=== PATIENT | male | born 1960 | race Hispanic/Latino ===

== ENCOUNTER 2017-10-12 17:59 | Emergency (ER) | payer OTHER ==
[~2017-10-12] VITALS: Ht 172.7 cm; Wt 80.7 kg
--- NOTE | 2017-10-12 18:44 | ED EYE COMPLAINT ---
History of Present Illness General Chief Complaint: Eye Problems Stated Complaint: ?PINK EYE Source: patient Exam Limitations: no limitations Vital Signs & Intake/Output Vital Signs & Intake/Output Vital Signs Date Time Temp Pulse Resp B/P B/P Pulse O2 O2 Flow FiO2 Mean Ox Delivery Rate 10/12 1853 98.1 75 18 154/96 97 Room Air Room Air 10/12 1805 98.0 74 18 136/100 98 Room Air Allergies Coded Allergies: papaya (Intermediate, HIVES 10/12/17) Uncoded Allergies: NUTS (Severe, ANAPHYLAXIS 10/12/17) Reconcile Medications Polytrim (Polytrim Eye Drops) 10,000 UNIT-1 MG/ML DROPS 1 GTT OPH Q6 CONJUNCTIVITIS Triage Note: 57M WITH RIGHT SCLERAL REDDENING WITH OOZING, WAKES WITH CRUSTING X2-3 DAYS. REPORTS GRANDSON RECENTLY TREATED FOR PINK EYE ALSO. DENIES HEADACHE. REPORTS AFFECTED EYE IS BLURRY. HYPERTENSIVE IN TRIAGE, HX OF HTN DOES NOT TAKE MEDICATION FOR IT Triage Nurses Notes Reviewed? yes Onset: Gradual Duration: day(s): (2-3) Timing: remote history Injury Environment: home Severity: moderate Severity Numbers: 6 No Modifying Factors: none HPI: Patient is a 57-year-old male with no past medical history presenting to the emergency department to complaint of right eye redness and discharge is been going on for the past 2-3 days. Waking up with crusting in the eye. Reports his grandson has had similar symptoms, recently treated for pinkeye which has resolved with him. No fevers or chills. Denies any vision changes. Has not been taking anything [id number] to help with symptoms. Patient does admit that he's been rubbing his eye often. No trauma. Denies foreign body sensation. Denies any pain associated with it. (Radha Watson) Past History Travel History Traveled to [place] past 21 day No Medical History Any Pertinent Medical History? see below for history Neurological: NONE EENT: NONE Cardiovascular: hypertension Respiratory: NONE Gastrointestinal: NONE Hepatic: NONE Renal: NONE Musculoskeletal: NONE Psychiatric: NONE Endocrine: NONE Blood Disorders: NONE Cancer(s): NONE Surgical History Surgical History: non-contributory Psychosocial History What is your primary language Frisian Tobacco Use: Current Daily Use Daily Tobacco Use Amount/Type: => 5 Cigarettes daily Family History Hx Contributory? No (Radha Watson) Review of Systems Review of Systems Constitutional: Reports: no symptoms. Comments Review of systems: See HPI, All other systems negative. Constitutional, no chills fever or weight loss HEENT: No visual changes no sore throat no congestion Cardiovascular: No chest pain ,palpitation Skin, no jaundice no rashes Respiratory: No dyspnea cough sputum GI: No nausea no vomiting Muscle skeletal: no back pain, no neck pain, Neurologic: No numbness no confusion Psych: No stress anxiety or depression,. Heme/endocrine: No bruising no bleeding no polyuria or polydipsia Immunology: No splenectomy or history of AIDS (Radha Watson) Physical Exam General Appearance: well developed/nourished, no apparent distress, alert, awake , comfortable General Inspection: normal inspection Eyelid: normal inspection Conjunctiva/Sclera: normal inspection EOM: intact Pupil: normal accommodation, normal pupil, PERRL General Inspection: normal inspection Eyelid: normal inspection Conjunctiva/Sclera: injected EOM: intact Pupil: normal accommodation, normal pupil, PERRL Anterior Chamber: normal inspection Physical Exam Head: atraumatic Comments: Well-developed well-nourished person in no acute distress HEENT: xtraocular motion intact, no nystagmus. Pupils equally round and reactive to light and accommodation. Right conjunctival injection noted with crusting noted in the upper and lower eyelashes. No purulent drainag noted. Nose is atraumatic. External auditory canal and Tympanic membranes clear. Pharynx normal. No swelling or edema. Neck: Normal inspection Respiratory: No respiratory distress. Extremity: No edema, Neuro: Alert oriented x3 Skin: No appreciable rash on exposed skin, skin is warm and dry. Psych: Mood and affect is normal, memory and judgment is normal. (Radha Watson) Progress Differential Diagnosis: , CORNEAL FOREIGN BODY, CONJUNCTIVITIS,CORNEAL ABRASION Plan of Care: Patient will be treated with Polytrim drops for conjunctivitis. Educated on warm compresses. Patient will return for worsening symptoms or concerns. Otherwise patient will follow up PCP. Repeat manual blood pressure is 156/94. pt will follow up with pcp. pt non- toxic. no headaches. (Radha Watson) Departure Departure Time of Disposition: 1849 Disposition: HOME OR SELF CARE Condition: Stable Clinical Impression Primary Impression: Conjunctivitis Qualifiers: Conjunctivitis type: acute Acute conjunctivitis type: unspecified Laterality: right Qualified Code: H10.31 - Unspecified acute conjunctivitis, right eye Secondary Impressions: Elevated blood pressure reading without diagnosis of hypertension Referrals: Patient Has No Primary Care Dr (PCP/Family) Additional Instructions: Follow-up with primary care physician in the next 5-7 days, collimating appointment. Use eye drops as prescribed. Apply warm compresses to affected area. Return sooner for any worsening symptoms or concerns. follow up with pcp regarding blood pressure as well. Departure Forms: Customer Survey General Discharge Information Prescriptions: Current Visit Scripts Polytrim (Polytrim Eye Drops) 1 GTT OPH Q6 #10 ML (Radha Watson) PA/LOPPER Co-Sign Statement Statement: ED Attending supervision documentation- [] I saw and evaluated the patient. I have also reviewed all the pertinent lab results and diagnostic results. I agree with the findings and the plan of care as documented in the PA's/LOPPER's documentation. [X] I have reviewed the ED Record and agree with the PA's/LOPPER's documentation. [] Additions or exceptions (if any) to the PAs/LOPPER's note and plan are summarized below: [] (Ashley CRENSHAW,Karlos Crandall)
[2017-10-12] MEDS ORDERED: POLYTRIM EYE DR10 ML OPH (18:48)
[2017-10-12 18:53] VITALS: BP 154/96
== END 2017-10-12 18:58 ==
LOC: ERH 17:59
DX: H10.9 Unspecified conjunctivitis (principal); I10 Essential (primary) hypertension